=== PATIENT | female | born 1960 | race Caucasian/White ===

== ENCOUNTER 2020-07-09 18:47 | Inpatient (IN) ==
[2020-07-09] MEDS ORDERED: Acetaminophen 325 MG TABLET PO ONE (19:36)
[2020-07-09 20:01] LABS: Alanine Aminotransferase 14 Units/L (7-52); Albumin 3.6 g/dL (3.5-5.7); Albumin/Globulin Ratio 0.9 (1.1-2.2); Alkaline Phosphatase 56 Units/L (34-104); Amylase 21 Units/L (29-103); Aspartate Amino Transferase 33 Units/L (13-39); BUN/Creatinine Ratio 12 (6-26); Bilirubin,Direct 0.7 mg/dL (0.0-0.2); Bilirubin,Indirect 2.4 mg/dL (0.0-1.0); Bilirubin,Total 3.1 mg/dL (0.3-1.0); Blood Urea Nitrogen 10 mg/dL (8-23); Calcium 9.2 mg/dL (8.6-10.3); Carbon Dioxide 25 mEq/L (23-29); Chloride 98 mEq/L (98-107); Glucose 97 mg/dL (70-105); Lipase 40 Units/L (11-82); Osmolality,Calculated 279 (280-300); Sodium 135 mEq/L (136-145); Total Protein 7.6 g/dL (6.4-8.9); Troponin I < 0.03 ng/mL (< 0.04); eGFR For African Americans > 60 (> 60); eGFR For Non-African Americans > 60 (> 60)
[2020-07-09 20:03] LABS: Basophils % 0.5 %; Eosinophils # 0.3 K/mcL (0.0-0.6); Eosinophils % 8.1 %; Hematocrit 42.5 % (35.3-44.9); Hemoglobin 14.5 g/dL (11.5-15.4); Immature Granulocytes % 0.3 % (0-4); Lymphocytes # 0.5 K/mcL (0.6-4.6); Lymphocytes % 13.8 %; Mean Corpuscular HGB Conc 34.1 g/dL (31.6-35.5); Mean Corpuscular Hemoglobin 31.7 pg (28.0-33.3); Mean Corpuscular Volume 92.8 fL (83.0-100.0); Mean Platelet Volume 9.5 fL (9.4-12.4); Monocytes # 0.5 K/mcL (0.0-1.3); Monocytes % 13.5 %; Neutrophils # 2.5 K/mcL (1.6-8.9); Platelet Count 115 K/mcL (140-400); Red Blood Count 4.58 M/mcL (3.82-4.97); Red Cell Distribution Width 14.2 % (11.5-14.5); Segmented Neutrophils % 63.8 %; White Blood Count 3.8 K/mcL (4.3-11.1)
[2020-07-09 20:05] LABS: Bilirubin,Urine Negative (Negative); Blood,Urine Negative (Negative); Clarity,Urine Clear (Clear); Color,Urine Light-Yellow (Yellow); Glucose,Urine (UA) Normal (Normal); Ketones,Urine Negative (Negative); Leukocyte Esterase,Urine Negative (Negative); Nitrite,Urine Negative (Negative); PH,Urine 5.5 pH Units (5.0-8.0); Protein,Urine Negative (Neg-Trace); Urobilinogen,Urine Normal (Normal)
[2020-07-09] MEDS ORDERED: cefTRIAXone 1,000 MG in 0.9 % Sodium Chloride Mini Bag 100 ML IVPB ONE (21:52)
[2020-07-09 22:17] LABS: INR 1.5; Prothrombin Time 16.9 Seconds (9.4-12.1)
[2020-07-09 22:20] LABS: Activated Partial Thrombo Time 29.6 Seconds (26.0-36.0)
[2020-07-09] MEDS ORDERED: Albumin 25% 25gram/100mL 25 GM/100 ML IV.SOLN IVPB ONE (23:12)
[2020-07-09 23:23] LABS: RBC,Peritoneal Fluid < 2000 RBC/mcL
[2020-07-09 23:27] LABS: Appearance of Peritoneal Fl CLEAR (Clear)
[2020-07-09 23:39] LABS: Amylase,Peritoneal Fluid < 10 Units/L (No Ref Range); Glucose,Peritoneal Fluid 155 mg/dL (No Ref Range); LDH,Peritoneal Fluid 62 Units/L (No Ref Range)
[2020-07-09 23:47] LABS: Basophils,Peritoneal Fluid 0 %; Eosinophils,Peritoneal Fluid 0 %
[2020-07-09] MEDS ORDERED: *HR* HYDROcodone/Acet 5/325 mg TABLET PO PRN (23:55)
[2020-07-09] MEDS ORDERED: Acetaminophen 325 MG TABLET PO PRN (23:55)
[2020-07-09] MEDS ORDERED: Ondansetron 4 MG/2 ML VIAL IVP PRN (23:55)
[2020-07-09] MEDS ORDERED: Naloxone 0.4 MG/ML INJ IVP PRN (23:55)
[2020-07-10 03:08] LABS: INR 1.8
[2020-07-10 03:28] LABS: Alanine Aminotransferase 12 Units/L (7-52); Albumin/Globulin Ratio 0.9 (1.1-2.2); Alkaline Phosphatase 45 Units/L (34-104); Aspartate Amino Transferase 25 Units/L (13-39); BUN/Creatinine Ratio 14 (6-26); Bilirubin,Total 2.6 mg/dL (0.3-1.0); Blood Urea Nitrogen 11 mg/dL (8-23); Calcium 8.4 mg/dL (8.6-10.3); Carbon Dioxide 28 mEq/L (23-29); Chloride 100 mEq/L (98-107); Chol/HDL Ratio 3.7 (0-4.9); Cholesterol 84 mg/dL (< 200); Globulin 3.2 g/dL (2.4-3.5); Glucose 93 mg/dL (70-105); HDL Cholesterol 23 mg/dL (40-59); LDL Cholesterol,Calculated 49 mg/dL (< 100); Magnesium 1.7 mg/dL (1.6-2.6); Osmolality,Calculated 281 (280-300); Phosphorous 3.2 mg/dL (2.7-4.5); Potassium 2.7 mEq/L (3.5-5.1); Sodium 136 mEq/L (136-145); Total Protein 6.2 g/dL (6.4-8.9); Triglycerides 62 mg/dL (< 150); eGFR For African Americans > 60 (> 60); eGFR For Non-African Americans > 60 (> 60)
[2020-07-10 06:01] LABS: Basophils % 0.5 %; Immature Granulocytes % 0.5 % (0-4)
[2020-07-10 06:03] LABS: Eosinophils # 0.2 K/mcL (0.0-0.6); Eosinophils % 9.6 %; Hematocrit 32.6 % (35.3-44.9); Immature Platelets 2.5 % (1.1-6.1); Lymphocytes # 0.4 K/mcL (0.6-4.6); Lymphocytes % 19.6 %; Mean Corpuscular HGB Conc 33.7 g/dL (31.6-35.5); Mean Corpuscular Volume 91.8 fL (83.0-100.0); Mean Platelet Volume 9.7 fL (9.4-12.4); Monocytes # 0.4 K/mcL (0.0-1.3); Monocytes % 19.6 %; Neutrophils # 1.1 K/mcL (1.6-8.9); Red Blood Count 3.55 M/mcL (3.82-4.97); Segmented Neutrophils % 50.2 %; White Blood Count 2.1 K/mcL (4.3-11.1)
[2020-07-10 06:35] LABS: Platelet Count 74 K/mcL (140-400)
[2020-07-10 06:37] LABS: Platelet Estimate Decreased (Normal)
[2020-07-10] MEDS ORDERED: Potassium Chloride 40 MEQ, Lidocaine 1% 2 ML in 0.9 % Sodium Chloride 500 ML IVPB ONE (08:09)
[2020-07-10] MEDS ORDERED: cefTRIAXone 1,000 MG in Water for inj. (sterile) 10 ML IVP SCH (09:00)
[2020-07-10] MEDS: Piperacillin/Tazobactam 3.375 GM in 0.9 % Sodium Chloride Mini Bag 100 ML IVPB SCH ×3 (09:56→16:05)
[2020-07-10 16:25] LABS: RBC,Peritoneal Fluid < 2000 RBC/mcL
[2020-07-10 16:47] LABS: Amylase,Peritoneal Fluid < 10 Units/L (No Ref Range); Glucose,Peritoneal Fluid 92 mg/dL (No Ref Range); LDH,Peritoneal Fluid 67 Units/L (No Ref Range); Total Protein,Peritoneal Fluid < 2.0 g/dL
[2020-07-10 17:31] LABS: Appearance of Peritoneal Fl HAZY (Clear); Basophils,Peritoneal Fluid 0 %; Eosinophils,Peritoneal Fluid 0 %
[2020-07-10] MEDS ORDERED: Albumin 25% 25gram/100mL 25 GM/100 ML IV.SOLN IVPB ONE (19:12)
[2020-07-10] MEDS ORDERED: *HR* Dextrose 50 % in Water (Vial) 50 ML VIAL IVP PRN (19:14)
[2020-07-10] MEDS ORDERED: Dextrose Gel 15 GM/37.5 ML TUBE PO PRN ×2 (19:14)
[2020-07-10] MEDS ORDERED: D5% in Water 1,000 ML IVC PRN (19:14)
[2020-07-10] MEDS ORDERED: Insulin LISPRO 300 UNITS/3 ML VIAL SUBQ SCH (21:00)
[2020-07-10] MEDS ORDERED: Famotidine 20 MG TABLET PO PRN (23:07)
[2020-07-11] MEDS: Piperacillin/Tazobactam 3.375 GM in 0.9 % Sodium Chloride Mini Bag 100 ML IVPB SCH ×3 (00:10→09:32)
[2020-07-11 05:31] LABS: Eosinophils # 0.1 K/mcL (0.0-0.6); Eosinophils % 8.4 %; Hematocrit 33.9 % (35.3-44.9); Hemoglobin 11.4 g/dL (11.5-15.4); Immature Granulocytes % 0.6 % (0-4); Lymphocytes # 0.3 K/mcL (0.6-4.6); Lymphocytes % 17.5 %; Mean Corpuscular HGB Conc 33.6 g/dL (31.6-35.5); Mean Corpuscular Hemoglobin 31.5 pg (28.0-33.3); Mean Corpuscular Volume 93.6 fL (83.0-100.0); Mean Platelet Volume 9.3 fL (9.4-12.4); Monocytes # 0.2 K/mcL (0.0-1.3); Monocytes % 15.6 %; Neutrophils # 0.9 K/mcL (1.6-8.9); Red Blood Count 3.62 M/mcL (3.82-4.97); Red Cell Distribution Width 13.8 % (11.5-14.5); Segmented Neutrophils % 57.9 %; White Blood Count 1.5 K/mcL (4.3-11.1)
[2020-07-11 05:45] LABS: Alanine Aminotransferase 9 Units/L (7-52); Albumin 3.2 g/dL (3.5-5.7); Albumin/Globulin Ratio 1.2 (1.1-2.2); Alkaline Phosphatase 39 Units/L (34-104); Aspartate Amino Transferase 21 Units/L (13-39); BUN/Creatinine Ratio 13 (6-26); Bilirubin,Direct 0.6 mg/dL (0.0-0.2); Bilirubin,Indirect 1.9 mg/dL (0.0-1.0); Bilirubin,Total 2.5 mg/dL (0.3-1.0); Blood Urea Nitrogen 10 mg/dL (8-23); Calcium 8.5 mg/dL (8.6-10.3); Carbon Dioxide 28 mEq/L (23-29); Chloride 103 mEq/L (98-107); Globulin 2.7 g/dL (2.4-3.5); Glucose 99 mg/dL (70-105); Magnesium 2.1 mg/dL (1.6-2.6); Osmolality,Calculated 283 (280-300); Platelet Count 75 K/mcL (140-400); Potassium 3.2 mEq/L (3.5-5.1); Sodium 137 mEq/L (136-145); Total Protein 5.9 g/dL (6.4-8.9); eGFR For African Americans > 60 (> 60); eGFR For Non-African Americans > 60 (> 60)
[2020-07-11 05:47] LABS: Estimated Average Glucose 114 mg/dl; Hemoglobin A1C 5.6 %
[2020-07-11 06:14] LABS: Hepatitis B Surface Antigen Nonreactive (Nonreactive)
[2020-07-11 06:26] LABS: Platelet Estimate Decreased (Normal)
[2020-07-11 06:42] LABS: Hepatitis C Virus Antibody Nonreactive (Nonreactive)
[2020-07-11] MEDS ORDERED: Insulin LISPRO 300 UNITS/3 ML VIAL SUBQ SCH (07:30)
[2020-07-11] MEDS: Potassium Chloride 40 MEQ, Lidocaine 1% 2 ML in 0.9 % Sodium Chloride 500 ML IVPB ONE ×2 (09:19→09:34)
[2020-07-11] MEDS ORDERED: FLU Vac QV 20-21 (6Month+)/PF 0.5 ML SYRINGE IM ONE (09:32)
[2020-07-11 10:27] VITALS: BP 101/61
[2020-07-15 05:12] LABS: Fluid Source for Albumin ASCITES
== END 2020-07-11 11:55 | disposition home or self-care (01) | DRG 871 ==
LOC: 3ANU 18:47 → EMEROOARM 18:47 → SUATTDRO 23:34 → 3ANU 07-10 01:00
PROVIDERS: ADMIT Student in an Organized Health Care Education/Training Program; ATTEND Pharmacist